=== PATIENT | female | born 1965 | race Caucasian/White ===

== ENCOUNTER 2017-03-04 14:17 | Emergency (ER) | payer OTHER ==
[~2017-03-04] VITALS: Ht 167.6 cm; Wt 68.0 kg
[2017-03-04] MEDS ORDERED: LEXAPRO 10 MG T10 MG PO (14:34)
[2017-03-04] MEDS ORDERED: VIORELE 28 DAY1 EACH PO (14:36)
== END 2017-03-04 15:53 | disposition home or self-care (01) ==
LOC: ER 14:17
DX: S61.210A Laceration without foreign body of right index finger without damage to nail, initial encounter (principal); F32.9 Major depressive disorder, single episode, unspecified; W26.8XXA Contact with other sharp object(s), not elsewhere classified, initial encounter; Y93.89 Activity, other specified; Y92.89 Other specified places as the place of occurrence of the external cause; Y99.8 Other external cause status